=== PATIENT | female | born 1995 | race Caucasian/White ===

== ENCOUNTER 2017-12-02 00:13 | Emergency (ER) | payer SELFPAY ==
[~2017-12-02] VITALS: Ht 157.5 cm; Wt 47.3 kg
[2017-12-02 00:17] VITALS: BP 145/95
== END 2017-12-02 01:29 | disposition home or self-care (01) ==
LOC: ED 01:24
DX: Z72.9 Problem related to lifestyle, unspecified (principal); Z75.9 Unspecified problem related to medical facilities and other health care
CPT/HCPCS: 99283